=== PATIENT | female | born 1985 | race Caucasian/White ===

== ENCOUNTER 2017-05-23 13:02 | Day surgery (SDC) | payer BC ==
[2017-05-23 13:28] VITALS: BP 134/83; PULSE 104; RESP 16; TEMP 98; O2SAT 100
[2017-05-23] MEDS ORDERED: LIDOCAINE HCL 1% 20 ML VIAL ONE (14:14)
[2017-05-23 14:18] VITALS: BP 117/77; PULSE 86; RESP 17; TEMP 98.5; O2SAT 98
[2017-05-23 14:33] VITALS: BP 108/72; PULSE 82; RESP 18; O2SAT 98
--- NOTE | 2017-05-23 14:39 | RADRPT ---
EXAM DATE/TIME: 05/23/2017 13:20 [place] COMPARISON: No previous studies available for comparison. INDICATIONS : Midline neck palpable mass. MEDICAL HISTORY : . SURGICAL HISTORY : Knee surgery left leg. Varicose veins left leg. ENCOUNTER: Initial ACUITY: 1 month PAIN SCORE: 5/10 LOCATION: Mid neck. ORGAN: Bilateral soft tissue SPECIMENS: Four core specimen(s) submitted for pathologic evaluation. DEVICE: 16 gauge Temno needle Post procedure scanning reveals no hematoma or other complication. The possibility does exist that the tissue obtained will be non-diagnostic. If the sample is non-armand gnostic a repeat biopsy or surgical biopsy may need to be performed. TECHNIQUE: 1. Ultrasound guidance for needle biopsy. 2. Needle biopsy. The risks, benefits and alternatives to the procedure were explained and verbal and written consent w as obtained. The site was prepped in sterile fashion. Full sterile technique was used, including ca p, mask, sterile gloves and gown and a large sterile sheet. Hand hygiene and 2% chlorhexidine and/or betadine/alcohol prep was utilized per protocol for cutaneous antisepsis. The skin and subcutaneous tissues were infiltrated with local anesthetic solution. Sterile gel and sterile probe cover were u tilized for ultrasound guidance. With the patient on the ultrasound table, images were obtained. A needle was advanced into the identified target and the number of specimens as above obtained and coley bmitted for pathologic evaluation. The patient tolerated the procedure well and left the ultrasound suite in stable condition. CONCLUSION: Uncomplicated ultrasound guided needle biopsy. Wenceslao Batres MD on May 23, 2017 at 14:37 Board Certified Radiologist. This report was verified electronically.
== END 2017-05-23 14:48 | disposition home or self-care (01) ==
LOC: HRAD 13:02 → HRIP 13:08 → HRAD 14:48
PROVIDERS: ATTEND Obstetrics & Gynecology
DX: R22.1 Localized swelling, mass and lump, neck (principal); R89.7 Abnormal histological findings in specimens from other organs, systems and tissues
CPT/HCPCS: 20206; 76942; 88184; 88185; 88305; 88307; 88341; 88342